=== PATIENT | male | born 1960 | race Caucasian/White ===

== ENCOUNTER 2023-02-13 09:21 | Outpatient (CLI) | payer SELFPAY ==
--- NOTE | 2023-02-13 09:15 | DI.RAD_ITS ---
Exam(s) XR SHOULDER RT COMPLETE 2+V EXAM: XR SHOULDER RT COMPLETE 2+V CLINICAL HISTORY: Right shoulder pain. TECHNIQUE: 2D digital imaging was performed. COMPARISON: CR RIGHT SHOULDER COMPLETE from 03/09/2015 CR RIGHT SHOULDER 1 VIEW from 10/26/2015 FINDINGS: 3 views No evidence of fracture or dislocation of glenohumeral joint and no subacromial soft tissue calcifica tions. However, there is prominent dislocation of the acromioclavicular joint. There are vertical channels in the lateral aspect of the clavicle which are related to prior surgical procedure. IMPRESSION: As above. DATA REPOSITORY: RADIATION DOSE DELIVERED:
== END 2023-02-13 09:22 | disposition home or self-care (01) ==
LOC: DIORS 09:22
PROVIDERS: Visit Provider Student in an Organized Health Care Education/Training Program
DX: M25.511 Pain in right shoulder (principal); S43.101A Unspecified dislocation of right acromioclavicular joint, initial encounter
CPT/HCPCS: 73030